=== PATIENT | male | born 1970 | race Caucasian/White ===

== ENCOUNTER 2024-08-20 15:34 | Inpatient (IN) | payer MEDICAID ==
[~2024-08-20] VITALS: Ht 185.4 cm; Wt 26.1 kg
[2024-08-20 16:06] LABS: BILIRUBIN,URINE NEGATIVE (Neg); CLARITY,URINE CLEAR (Clear); COLOR,URINE YELLOW (Yellow); GLUCOSE, URINE NEGATIVE (Neg); KETONES,URINE NEGATIVE (Neg); LEUKOCYTE ESTERASE ,URINE NEGATIVE (Neg); NITRITES, URINE NEGATIVE (Neg); OCCULT BLOOD,URINE SMALL (Neg); PH,URINE 5.5 (4.8-8.0); PROTEIN,URINE 30 mg/dl (Neg); UROBILINOGEN,URINE 0.2 E.U/dL (0.2-1.0)
[2024-08-20 16:08] LABS: UA COLLECTION TYPE CLN CATCH MIDSTREAM
[2024-08-20 16:09] LABS: BASOPHILS % (AUTO) 0.3 % (0-1); EOSINOPHILS # (AUTO) 0.1 X10'3 (0-0.9); EOSINOPHILS % (AUTO) 0.5 % (0-6); HEMATOCRIT 48.6 % (42.0-52.0); LYMPHOCYTES # (AUTO) 1.3 X10'3 (1.1-4.8); LYMPHOCYTES % (AUTO) 9.6 % (21-51); MEAN CORPUSCULAR HEMOGLOBIN 32.7 PG (27.0-31.0); MEAN CORPUSCULAR HGB CONC 34.9 g/dL (33.0-36.5); MEAN CORPUSCULAR VOLUME 93.7 FL (78-98); MEAN PLATELET VOLUME 8.9 FL (7.4-10.4); MONOCYTES # (AUTO) 0.9 X10'3 (0-0.9); MONOCYTES % (AUTO) 7.1 % (2-12); NEUTROPHILS # (AUTO) 10.7 X10'3 (1.8-7.7); NEUTROPHILS % (AUTO) 82.5 % (42-75); PLATELET COUNT 202 X10'3 (140-440); RED BLOOD COUNT 5.19 X10'6 (4.70-6.10); RED CELL DISTRIBUTION WIDTH 13.3 % (11.5-14.5)
[2024-08-20 16:18] LABS: BACTERIA,URINE NONE SEEN /HPF (Neg); FINE GRANULAR CAST 0-3 /LPF (NEGATIVE); HYALINE CASTS 0-3 /LPF (NEGATIVE); MUCUS STRANDS FEW /LPF (Neg); SQUAMOUS EPITHELIAL CELL,UR NONE SEEN /LPF (FEW); WBC,URINE NONE SEEN /HPF (0-4)
[2024-08-20 16:37] LABS: ALANINE AMINOTRANSFERASE 31 U/L (12-78); ALBUMIN 4.3 G/DL (3.4-5.0); ALBUMIN/GLOBULIN RATIO 1.3 (1.1-1.5); ALKALINE PHOSPHATASE 91 IU/L (46-116); ANION GAP 9 (8-16); ASPARTATE AMINO TRANSFERASE 18 U/L (10-37); BILIRUBIN,TOTAL 1.8 MG/DL (0.1-1.0); BLOOD UREA NITROGEN 18 MG/DL (7-18); BUN/CREATININE RATIO 16.8 (10.0-20.0); CALCIUM 8.8 MG/DL (8.5-10.1); CHLORIDE 105 MMOL/L (99-107); CREATININE 1.07 MG/DL (0.60-1.10); GLUCOSE 103 MG/DL (70-104); LIPASE 84 U/L (16-77); POTASSIUM 4.2 MMOL/L (3.5-5.1); SODIUM 140 MMOL/L (135-145); TOTAL CARBON DIOXIDE 26.1 MMOL/L (24-32); TOTAL PROTEIN 7.7 G/DL (6.4-8.2); eCRCL 87 ML/MIN; eGFR 71 ML/MIN
[2024-08-21] VITALS (16 sets, daily range): BP systolic 113–144; BP diastolic 47–88; PULSE 53–89; RESP 13–18; TEMP 97.2–98.6; O2SAT 93–98
[2024-08-21] MEDS: piperacillin/tazo 4.5gm/100ml 100 ML IV ONE (00:47)
[2024-08-21] MEDS ORDERED: mag hydrox/Alum hydrox/simeth 30ml oral suspension PO PRN (02:30)
[2024-08-21] MEDS ORDERED: potassium Cl 20 mEq SR tablet PO PRN ×2 (02:30)
[2024-08-21] MEDS ORDERED: potassium Cl 40MEQ/1/2NS 520ml 520 ML IV PRN (02:30)
[2024-08-21] MEDS ORDERED: magnesium sulf-water 4G/100mL 100 ML IV PRN (02:30)
[2024-08-21] MEDS ORDERED: magnesium sulf-water 2g/50mL 50 ML IV PRN (02:30)
[2024-08-21] MEDS ORDERED: acetaminophen 325mg tablet PO PRN (02:30)
[2024-08-21] MEDS ORDERED: magnesium Cl slow-release 64mg tablet PO PRN (02:30)
[2024-08-21] MEDS ORDERED: morphine 2 MG/ML inj. syringe IV PRN ×2 (02:30→11:35)
[2024-08-21] MEDS ORDERED: magnesium hydroxide 30ml (MOM) UD suspension PO PRN (02:30)
[2024-08-21 03:24] LABS: MAGNESIUM 2.4 MG/DL (1.5-2.4); POTASSIUM 4.3 MMOL/L (3.5-5.1)
[2024-08-21 03:27] LABS: APTT 29 SECONDS (22-32); INR 1.2 INR; PROTHROMBIN TIME 12.7 SECONDS (9.0-12.0)
[2024-08-21] MEDS: ringers solution, lacted 1,000 ML IV SCH ×2 (03:40→19:16)
[2024-08-21] MEDS: piperacillin/tazo 3.375gm/50ml 50 ML IV SCH (03:52)
[2024-08-21] MEDS: ondansetron/PF 4mg/2ml inj IV PRN (06:54)
[2024-08-21] MEDS: morphine 2 MG/ML inj. syringe IV PRN (06:55)
[2024-08-21] MEDS: docusate sod 100mg capsule PO SCH (07:16)
[2024-08-21] MEDS: K and/or MAG REPLACEMENT MC SCH (07:16)
[2024-08-21] MEDS: enoxaparin 40mg/0.4ml syringe SUBCUT SCH (07:16)
[2024-08-21] MEDS ORDERED: morphine 4 MG/ML inj SYRINge IV PRN (11:35)
[2024-08-21] MEDS ORDERED: ondansetron/PF 4mg/2ml inj IV PRN (11:35)
[2024-08-21] MEDS ORDERED: labetalol 20mg/4ml (5mg/ml) syringe IV PRN (11:35)
[2024-08-21] MEDS ORDERED: hydrALAZINE 20mg/ml inj. IV PRN (11:35)
[2024-08-21] MEDS ORDERED: fentaNYL/PF 50MCG/1 ML 2ML syringe IV PRN ×2 (11:35)
[2024-08-21] MEDS: INDOCYANINE GREEN 25 MG/10 ML VIAL IV ONE (12:00)
[2024-08-21] MEDS ORDERED: BUPIVAcaine 2.5mg/ml inj 50ml vial (contains preservative) ONE (12:39)
[2024-08-21] MEDS ORDERED: sevoflurane 250ml liquid IH ONE (12:50)
[2024-08-21] MEDS ORDERED: LIDOcaine 2% (20mg/ml) 5ml vial ONE (12:52)
[2024-08-21] MEDS ORDERED: midazolam 1 mg/ML 2ml injection ONE (12:52)
[2024-08-21] MEDS ORDERED: propofol inj 20 ML IV ONE (12:52)
[2024-08-21] MEDS ORDERED: rocuronium 10mg/ml inj IV ONE (12:52)
[2024-08-21] MEDS ORDERED: ondansetron/PF 4mg/2ml inj ONE (12:53)
[2024-08-21] MEDS ORDERED: LIDOcaine 1% 30ml preserv. free vial ONE (13:01)
[2024-08-21] MEDS ORDERED: acetaminophen 1,000mg/100ml IV 100 ML IV ONE (13:03)
[2024-08-21] MEDS ORDERED: ceFAZolin 1000mg inj ONE ×2 (13:10)
[2024-08-21] MEDS ORDERED: glycopyrrolate 0.2mg/ml inj ONE (13:38)
[2024-08-21] MEDS ORDERED: neostigmine methylsulfate 1 MG/ML 10ml vial ONE (13:38)
[2024-08-21] MEDS: heparin, porcine 5000 units/ml vial SQ SCH (22:03)
[2024-08-22] MEDS: piperacillin/tazo 3.375gm/50ml 50 ML IV SCH (00:15)
[2024-08-22 02:00] VITALS: BP 123/81; PULSE 83; RESP 15; TEMP 98.4; O2SAT 94
[2024-08-22 06:00] VITALS: BP 131/90; PULSE 100; RESP 19; TEMP 97.7; O2SAT 93
[2024-08-22 06:14] LABS: BASOPHILS % (AUTO) 0.2 % (0-1); EOSINOPHILS % (AUTO) 0 % (0-6); HEMATOCRIT 45.4 % (42.0-52.0); HEMOGLOBIN 15.9 g/dl (14.0-17.9); LYMPHOCYTES % (AUTO) 8.6 % (21-51); MEAN CORPUSCULAR HEMOGLOBIN 32.6 PG (27.0-31.0); MEAN CORPUSCULAR VOLUME 93.2 FL (78-98); MEAN PLATELET VOLUME 9.3 FL (7.4-10.4); MONOCYTES # (AUTO) 0.6 X10'3 (0-0.9); NEUTROPHILS # (AUTO) 9.9 X10'3 (1.8-7.7); NEUTROPHILS % (AUTO) 86.2 % (42-75); PLATELET COUNT 192 X10'3 (140-440); RED BLOOD COUNT 4.87 X10'6 (4.70-6.10); RED CELL DISTRIBUTION WIDTH 12.9 % (11.5-14.5); WHITE BLOOD COUNT 11.5 X10'3 (4.5-11.0)
[2024-08-22 06:48] LABS: ALBUMIN 3.4 G/DL (3.4-5.0); ALBUMIN/GLOBULIN RATIO 0.9 (1.1-1.5); ANION GAP 11 (8-16); ASPARTATE AMINO TRANSFERASE 15 U/L (10-37); BILIRUBIN,TOTAL 2.2 MG/DL (0.1-1.0); BLOOD UREA NITROGEN 17 MG/DL (7-18); BUN/CREATININE RATIO 15.3 (10.0-20.0); CALCIUM 8.5 MG/DL (8.5-10.1); CHLORIDE 104 MMOL/L (99-107); CREATININE 1.11 MG/DL (0.60-1.10); MAGNESIUM 2.4 MG/DL (1.5-2.4); POTASSIUM 4.4 MMOL/L (3.5-5.1); SODIUM 138 MMOL/L (135-145); TOTAL CARBON DIOXIDE 22.6 MMOL/L (24-32); eCRCL 27 ML/MIN; eGFR 69 ML/MIN
[2024-08-22 06:49] LABS: ALANINE AMINOTRANSFERASE 21 U/L (12-78); ALKALINE PHOSPHATASE 72 IU/L (46-116); CHOL/HDL RATIO 2.8 (0.00-4.99); CHOLESTEROL 116 MG/DL (0-200); HDL CHOLESTEROL 41 MG/DL (35-60); LDL CHOLESTEROL 69 MG/DL (50-100); TRIGLYCERIDES 51 MG/DL (20-135)
[2024-08-22 07:59] LABS: GLUCOSE 135 MG/DL (70-104)
[2024-08-22 08:00] VITALS: RESP 18; O2SAT 97
[2024-08-22 09:22] LABS: OSMOLALITY 290 MOSM/K (280-300)
[2024-08-22 11:00] VITALS: BP 135/84; PULSE 88; RESP 20; TEMP 98.1; O2SAT 93
== END 2024-08-22 13:47 | disposition home or self-care (01) | DRG 263 ==
LOC: ER 15:36 → ED HOLD 08-21 02:31 → EDBEDREQ 08-21 08:59 → ORTHO 4S 08-21 09:40 → SUR 3N 08-21 19:24
PROVIDERS: ADMIT Internal Medicine Sleep Medicine; ATTEND Family Medicine
PROC: BF131ZZ Fluoroscopy of Gallbladder and Bile Ducts using Low Osmolar Contrast (ICD-10-PCS; 2024-08-21)
PROC: 8E0W4CZ Robotic Assisted Procedure of Trunk Region, Percutaneous Endoscopic Approach (ICD-10-PCS; 2024-08-21)
PROC: 0FT44ZZ Resection of Gallbladder, Percutaneous Endoscopic Approach (ICD-10-PCS; principal; 2024-08-21 12:50)
DX: K80.01 Calculus of gallbladder with acute cholecystitis with obstruction (principal); K85.90 Acute pancreatitis without necrosis or infection, unspecified; K76.89 Other specified diseases of liver; K59.00 Constipation, unspecified; K82.8 Other specified diseases of gallbladder; E80.6 Other disorders of bilirubin metabolism; Z79.899 Other long term (current) drug therapy; Z83.3 Family history of diabetes mellitus; Q44.6 Cystic disease of liver
CPT/HCPCS: 36415; 71045; 74176; 76700; 80053; 80061; 81001; 82570; 83036; 83690; 83735; 83930; 83935; 84132; 84300; 85025; 85610; 85730; 87081; 87207; 99285; A4215; A4615; A4618; A7000; G0378; J0131; J0690; J1100; J1644; J2003; J2250; J2270; J2371; J2405; J2543; J2704; J2710; J3490; J7120